=== PATIENT | female | born 1970 | race Hispanic/Latino ===

== ENCOUNTER 2018-10-13 15:14 | Outpatient (CLI) | payer BC | END 2018-10-13 15:15 | disposition home or self-care (01) | LOC: BICMAMMO 15:14 | PROVIDERS: ATTEND Family Medicine | DX: Z12.31 Encounter for screening mammogram for malignant neoplasm of breast (principal); R92.1 Mammographic calcification found on diagnostic imaging of breast; Z80.3 Family history of malignant neoplasm of breast | CPT/HCPCS: 77063; 77067 ==

== ENCOUNTER 2019-05-23 07:20 | Outpatient (CLI) | payer BC ==
--- NOTE | 2019-05-23 10:08 | ULT ---
HEPATIC ULTRASOUND WITH DOPPLER: Date: 05/23/19 HISTORY: Elevated LFTs. FINDINGS: The liver demonstrates increased echogenicity consistent with fatty infiltration. No focal mass or in trahepatic ductal dilatation is seen. The patient is post cholecystectomy. The common duct measures 4 mm in diameter. The tail of the pancreas is not well visualized. The remainder of the pancreas is ot herwise normal. No free fluid is seen in the right upper quadrant. There is normal flow and spectral waveforms in the hepatic, portal, and splenic vasculature. The sple en is normal, measuring 9.7 cm in length. IMPRESSION: 1. Fatty liver. 2. Status post cholecystectomy. POS: OFF
== END 2019-05-23 07:21 | disposition home or self-care (01) ==
LOC: SCSULT 07:20
PROVIDERS: ATTEND Internal Medicine Gastroenterology
DX: R94.5 Abnormal results of liver function studies (principal); K76.0 Fatty (change of) liver, not elsewhere classified; Z90.49 Acquired absence of other specified parts of digestive tract
CPT/HCPCS: 76705

== ENCOUNTER 2019-12-16 15:22 | Outpatient (CLI) | payer BC ==
--- NOTE | 2019-12-22 13:27 | MMO ---
Bilateral MAMMO Bilat Screen [facility]. CLINICAL HISTORY: Patient is 49 years old and is seen for screening. The patient has no family history of breast cancer. The patient has no personal history of cancer. The patient has a history of bilateral Breast reduction in 2000. VIEWS: The views performed were: bilateral craniocaudal with tomosynthesis and bilateral mediolateral oblique with tomosynthesis. FILMS COMPARED: The present examination has been compared to prior imaging studies performed at [facility] on 05/19/2011, 09/21/2013, 12/04/2014 and 10/13/2018. This study has been interpreted with the assistance of computer-aided detection. MAMMOGRAM FINDINGS: There are scattered fibroglandular densities. There are stable benign appearing calcifications seen in both breasts. There are no suspicious masses, suspicious calcifications, or new areas of architectural distortion. IMPRESSION: THERE IS NO MAMMOGRAPHIC EVIDENCE OF MALIGNANCY. A ROUTINE FOLLOW-UP MAMMOGRAM IN 1 YEAR IS RECOMMENDED. THE RESULTS OF THIS EXAM WERE SENT TO THE PATIENT. ACR BI-RADS Category 2 - Benign finding MAMMOGRAPHY NOTE: 1. A negative mammogram report should not delay a biopsy if a dominant of clinically suspicious mass is present. 2. Approximately 10% to 15% of breast cancers are not detected by mammography. 3. Adenosis and dense breasts may obscure an underlying neoplasm. Reported by: KEDAR FRANKLIN MD Electonically Signed: [id number]
== END 2019-12-16 15:23 | disposition home or self-care (01) ==
LOC: BICMAMMO 15:22
PROVIDERS: ATTEND Family Medicine
DX: Z12.31 Encounter for screening mammogram for malignant neoplasm of breast (principal); Z98.82 Breast implant status
CPT/HCPCS: 77063; 77067

== ENCOUNTER 2020-01-04 10:39 | Observation (INO) | payer BC ==
[2020-01-04 11:08] LABS: #Basophils 0.1 thou/uL (0.0-0.2); #Eosinphils 0.1 thou/uL (0.0-0.7); #Lymphocytes 3.1 thou/uL (1.20-3.40); #Monocytes 0.4 thou/uL (0.11-0.59); #Neutrophils 7.1 thou/uL (1.40-6.50); %Basophils 1.2 % (0.0-1.0); %Lymphocytes 28.5 % (21.0-51.0); %Neutrophils 65.4 % (42.0-75.0); Hemoglobin 15.3 g/dL (12.0-16.0); Mean Corpuscular HGB CONC 33.6 g/dL (32.0-36.0); Mean Corpuscular Hemoglobin 28.4 pg (27.0-31.0); Mean Corpuscular Volume 84.5 fL (78.0-98.0); Mean Platelet Volume 7.4 fL (7.4-10.4); Platelet Count 224 thou/uL (130-400); White Blood Cell (WBC) Count 10.9 thou/uL (4.8-10.8)
--- NOTE | 2020-01-04 11:13 | RAD ---
2 VIEWS CHEST: Date: 01/04/2020 COMPARISON: None. HISTORY: Chest pain. FINDINGS: Two views of the chest show normal sized cardiomediastinal silhouette. There is no evidence of consol idation, mass, or pleural effusion. The bones are unremarkable. IMPRESSION: No evidence of acute cardiopulmonary disease. POS: TPC
[2020-01-04 11:32] LABS: ALT (SGPT) 51 U/L (8-55); AST (SGOT) 41 U/L (5-34); Albumin 4.5 g/dL (3.5-5.0); Alkaline Phosphatase 174 U/L (40-110); Anion Gap 14 mmol/L (10-20); BUN (Urea Nitrogen) 11 mg/dL (9.8-20.1); Bilirubin, Total 0.5 mg/dL (0.2-1.2); Calc. Creatinine Clearance 0 mL/min (70-130); Calcium 9.8 mg/dL (7.8-10.44); Carbon Dioxide 27 mmol/L (22-29); Chloride 101 mmol/L (98-107); Estimated GFR-MDRD 75; Glucose 306 mg/dL (70-105); Potassium 3.9 mmol/L (3.5-5.1); Protein, Total 7.5 g/dL (6.0-8.3); Sodium 138 mmol/L (136-145)
[2020-01-04] MEDS ORDERED: Iopamidol-370 76% 500 ML 1 ML ONE (13:54)
[2020-01-04] MEDS ORDERED: Aspirin Chewable 81 MG TAB ONE (13:56)
[2020-01-04] MEDS ORDERED: Nitroglycerin 0.4 MG TAB 1 EACH ONE (13:57)
--- NOTE | 2020-01-04 14:53 | CT ---
CTA Angio Chest W WO Con History: Chest pain Comparison: Chest radiograph same day Findings: CT angiogram chest performed after the intravenous administration of contrast. 3-D renderin g was provided. No proximal segmental pulmonary arterial filling defect. Admixing artifact within the pulmonary trunk. No pericardial effusion. Heart size is not significantly enlarged. Upper abdomen is unremarkable. No mediastinal adenopathy. No acute osseous abnormality. Thoracic spine is without compression deform ity. The lungs are clear. No pneumothorax. No effusion. No confluent airspace consolidation. No displaced rib fracture. Impression: 1. No pulmonary embolism. 2. No acute inflammatory process within the chest. No evidence for pneumonia.
[2020-01-04 17:20] LABS: Troponin I Less than 0.010 ng/mL (< 0.028)
[2020-01-04] MEDS ORDERED: Nitroglycerin 0.4 MG TAB (25 Tab Bottle) PO PRN (17:49)
[2020-01-04] MEDS ORDERED: HumaLOG 300 UNITS/3 ML VIAL SC PRN ×2 (17:57)
[2020-01-04] MEDS ORDERED: Dextrose 50% Abboject 50 ML SYRINGE SLOW IVP PRN (17:57)
[2020-01-04] MEDS ORDERED: Dextrose 5% in Water 1,000 ML IV PRN (17:57)
[2020-01-04] MEDS ORDERED: Acetaminophen 325 MG TAB PO PRN (18:01)
[2020-01-04] MEDS ORDERED: Acetaminophen 650 MG Suppository PR PRN (18:01)
[2020-01-04] MEDS ORDERED: Amitriptyline HCl 25 MG TAB PO SCH (22:45)
[2020-01-04] MEDS ORDERED: busPIRone HCl 10 MG TAB PO SCH (23:00)
[2020-01-04] MEDS ORDERED: Carvedilol 3.125 MG TAB PO SCH (23:00)
[2020-01-04] MEDS ORDERED: Gabapentin 300 MG CAP PO SCH (23:00)
[2020-01-04] MEDS ORDERED: Dextrose 5 %-0.45 % NaCl 1,000 ML IV SCH (23:55)
[2020-01-05 05:31] LABS: #Basophils 0.1 thou/uL (0.0-0.2); #Eosinphils 0.1 thou/uL (0.0-0.7); #Lymphocytes 3.5 thou/uL (1.20-3.40); #Monocytes 0.3 thou/uL (0.11-0.59); #Neutrophils 5.5 thou/uL (1.40-6.50); %Basophils 0.7 % (0.0-1.0); %Eosinophils 1.2 % (0.0-10.0); %Lymphocytes 36.4 % (21.0-51.0); %Monocytes 3.6 % (0.0-10.0); %Neutrophils 58.1 % (42.0-75.0); Mean Corpuscular HGB CONC 33.5 g/dL (32.0-36.0); Mean Corpuscular Hemoglobin 28.2 pg (27.0-31.0); Mean Corpuscular Volume 84.2 fL (78.0-98.0); Mean Platelet Volume 7.6 fL (7.4-10.4); Platelet Count 187 thou/uL (130-400); RBC Distribution Width 14.9 % (11.5-14.5); Red Blood Cell (RBC) Count 4.95 mill/uL (4.20-5.40); White Blood Cell (WBC) Count 9.5 thou/uL (4.8-10.8)
[2020-01-05 05:51] LABS: Anion Gap 16 mmol/L (10-20); BUN (Urea Nitrogen) 11 mg/dL (9.8-20.1); Calc. Creatinine Clearance 0 mL/min (70-130); Calcium 9.5 mg/dL (7.8-10.44); Carbon Dioxide 25 mmol/L (22-29); Chloride 101 mmol/L (98-107); Cholesterol 155 mg/dl (< 200 Desired); Estimated GFR-MDRD 90; Glucose 181 mg/dL (70-105); HDL Cholesterol 51 mg/dL (>60 Neg Risk); LDL Cholesterol, Calculated 78 mg/dL; Potassium 4.1 mmol/L (3.5-5.1); Sodium 138 mmol/L (136-145); Triglycerides 132 mg/dL (Less than 150)
[2020-01-05] MEDS ORDERED: Carvedilol 3.125 MG TAB PO SCH (08:00)
[2020-01-05] MEDS ORDERED: Aspirin 81 mg Enteric Coated Tablet PO SCH (09:00)
[2020-01-05] MEDS ORDERED: ADENOSINE 60 MG/20 ML VIAL ONE (09:43)
[2020-01-05] MEDS ORDERED: ALPRAZolam 0.25 MG TAB PO PRN (09:55)
[2020-01-05] MEDS ORDERED: ALPRAZolam 0.25 MG TAB ONE (10:00)
--- NOTE | 2020-01-05 11:08 | HP ---
TIME OF ASSESSMENT: 1700 hours. PRIMARY CARE PHYSICIAN: Dr. Robles. CHIEF COMPLAINT: Chest pain. HISTORY OF PRESENT ILLNESS: Ms. Daxa Carlson is a 49-year-old woman, who presents to the emergency department after experiencing sudden onset chest pressure while at work this morning around 7:00 a.m. The patient states she had come down from the top floor to the bottom floor via elevator. Upon getting out of the elevator, she felt a pressure in the center of her chest, which she rates it 3/10 to 4/10 in severity. She states she felt immediately nauseated and like her heart was racing. She states she was clammy and told by her co-worker that she appeared pale. The patient states she vomited once. She states all the symptoms came together at once. Denies having any radiating discomfort. Reports feeling like it was difficult to take deep breaths due to the pressure. Her pain has fully subsided. The patient reports having these similar symptoms, but never together at once. She reports having issues with tachycardia. Denies being diagnosed with atrial fibrillation or atrial flutter, but states her heart rate has always been fast and more recently has been as high as 156 when she went for a Rheumatology followup. It did improve to 140 after 5 minutes and she was released and advised to follow up with her ophthalmic photographer. The patient states she is on Coreg 3.125 mg p.o. twice daily and the reason why it cannot be increased is due to her chronically low blood pressure that is usually in the 90s systolic. 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 She denies having any fevers or chills. Reports having a chronic cough productive for white sputum, but denies any hemoptysis. Denies any issues with dyspnea on exertion. Reports having issues with chronic constipation. Denies any blood in her stools. Denies any urinary symptoms. All other review of systems are negative. ALLERGIES: 1. HYDROMORPHONE. 2. REGLAN. 3. INVOKANA. 4. ATORVASTATIN. CURRENT MEDICATIONS: 1. Jardiance. 2. Ozempic. 3. Amitriptyline. 4. Aspirin. 5. Carvedilol. 6. Gabapentin. 7. Metformin. 8. Omeprazole. 9. Buspirone. 10. Trulance. 11. Venlafaxine. PAST MEDICAL HISTORY: 1. Sinus tachycardia. 2. Diabetes mellitus. 3. Rheumatoid arthritis. 4. Anxiety. 5. Hyperlipidemia. PAST SURGICAL HISTORY: 1. Breast reduction surgery. 2. Sinus surgery. 3. Multiple oral surgeries. 4. Dilatation and curettage x2. 5. Cholecystectomy. 6. Hysterectomy. SOCIAL HISTORY: The patient lives with family at home and is fully independent at baseline. Denies any history of tobacco use, alcohol consumption, or illicit drug use. PHYSICAL EXAMINATION: GENERAL: The patient appears well developed, well nourished, is in no acute distress. VITAL SIGNS: Temperature 97.8, pulse 104, blood pressure 122/77, respirations 17, O2 saturation 98% on room air. HEENT: Normocephalic, atraumatic. Pupils are equal, round, reactive to light. Sclerae without icterus. Oropharynx is clear. NECK: Supple. LUNGS: Clear to auscultation bilaterally without wheezes, rales, or rhonchi. CARDIAC: Regular rate and rhythm. No reproducible chest wall tenderness on palpation. Normal chest wall expansion. No tachypnea. ABDOMEN: Soft, nontender, nondistended. Normoactive bowel sounds present. No guarding or rigidity. No renal angle tenderness. EXTREMITIES: No lower leg swelling or edema. NEUROLOGIC: Alert and oriented x3. SKIN: Warm and dry. LABORATORY DATA: White blood count 10.9, hemoglobin 15.3, hematocrit 45.6, platelets 224,000, neutrophils 65.4%. Sodium 138, potassium 3.9, BUN 11, creatinine 0.81, GFR 75, glucose 206, calcium 9.8, total bilirubin 0.5, AST 41, ALT 51, alkaline phosphatase 174. Troponin negative x2. Albumin 4.5. IMAGING DATA: 1. Chest x-ray showed no acute intrathoracic abnormalities. Normal size cardiomediastinal silhouette noted. 2. CT angiogram of the chest showed no PE. No acute inflammatory process within the chest. No evidence of pneumonia. IMPRESSION AND PLAN: Ms. Carlson is a pleasant 49-year-old woman, who presented to the emergency department with complaints of chest pressure associated with diaphoresis and nausea with one episode of vomiting. She had an EKG done showing sinus tachycardia with a heart rate of 108. There was 0.[address]-elevation and T-waves are normal. The patient was given 243 mg of aspirin, also given sublingual nitroglycerin. She underwent investigations as above and is being admitted for the following; 1. Acute coronary syndrome rule out. The patient will remain on continuous cardiac monitoring. We will plan to keep her n.p.o. after midnight. She will receive gentle hydration, given recent contrast given for CT angiogram and plans for stress test in the morning. The patient has requested to be evaluated by Dr. Smyth, who is her ophthalmic photographer, whom she follows with for management of her sinus tachycardia. We will check her magnesium, TSH, and fasting lipid panel. The patient states she is not sure she has ever had an echocardiogram, therefore this has been ordered as well of chronic cough productive for white sputum and occasional shortness of breath. 2. Diabetes mellitus. Monitor blood glucose and initiate insulin sliding scale. We will hold her medications for now being as she will be n.p.o. after midnight, will be undergoing a stress test. 3. Gastroesophageal reflux disease. The patient will be restarted on omeprazole. 4. Deep venous thrombosis prophylaxis. The patient is ambulatory. 5. Rheumatoid arthritis. Resume home medications once verified. 6. Code status is full. Surrogate decision maker is her , Maged Carlson. Case will be discussed with attending for further recommendations. Job ID: [id number]
--- NOTE | 2020-01-05 12:11 | NM ---
EXAM: NM Cardiac Stress W EF WF PROVIDED CLINICAL HISTORY: Chest pain COMPARISON: 04/27/2010 FINDINGS: Mild diminished uptake of radiotracer is seen within the distal anteroseptal left ventricular wall an d apex without findings to suggest significant reversibility. Quantitative analysis does not demonstrate significant reversibility. Gated images show normal ventricular wall motion and wall thic kening. Calculated left ventricular ejection fraction is 76%. Left ventricular ejection fraction on prior study in 2009 was 66%. There is elevation of the transient ischemic dilatation ratio 1.3. Nancy l is 1.22 or less. IMPRESSION: 1. Probably normal myocardial perfusion study with diminished uptake of radiotracer in the distal ant eroseptal wall and at the apex without significant reversibility appreciated. In addition quantitative analysis shows no significant reversible defect. 2. Normal LVEF of 76%. 3. Elevation of the transient ischemic dilatation ratio.
--- NOTE | 2020-01-05 16:38 | PDOC.BPN ---
- Brief Progress Note DISCHARGE SUMMARY LIVE [facility] Discharge Patient Name: GERALD BERRIOS Date of : 1970 Patient Status: Observation Attending Provider: Akash Agrawal Date: 01/05/20 16:35 Initialization Date: 01/05/20 16:35 Discharge - Disposition Disposition: HOME - Ambulatory Orders Prescriptions: Carvedilol [Coreg] 3.125 mg PO BID-WM 30 Days #60 tab - Patient Instructions Pre-Printed Education: Nonspecific Chest Pain, [id number] Additional Instructions: See patient discharge instruction sheet for detailed teaching. Patient verbalizes understanding of medications and is able to verbalize follow-up care. See Discharge Plan for additional discharge information. Patient secured in private vehicle prior to departure. FOCUS: Transition from Acute Care after Discharge GOAL: Successful transition to care in the community YOUR TASKS: (1) review all information outlined in your discharge packet (2) follow any instructions outlined in your discharge packet (3) contact your primary care provider if you have questions or need additional assistance - Referrals and PCP Follow-Up Referrals and PCP Follow-Up: Pete Robles MD [Primary Care Provider] - 7 Days () Leanne Smyth MD [Active] - (Please call to schedule a follow up appointment. ) - Nourishment Instructions Nourishment:: Regular Diet - Therapy Instructions Therapies:: Not Applicable - Equipment/Supply Instructions Equipment/Supplies:: Not Applicable - IV Therapy Instructions IV Therapy:: Not Applicable Course - Course Orders, Labs, Meds: 49 y/o lady presenting with chest pain, initial troponin and EKG unremarkable for ishemia, obsevation with stress test due to risk factors, test unremarkabl, likely chest pain related to anxiety or panic attack. Patient advised to followup with cardiology, given risk factor of diabetes and RA and continue medical mangement. Plan was discussed with cardiology team and they will follow up in the outpatient for lifestyle and medical management. At the time of discharge, patient no longer had symptoms of chest pain.
== END 2020-01-04 16:59 | disposition home or self-care (01) ==
LOC: ERS 10:39 → ERHOLD 16:38
PROVIDERS: ADMIT Internal Medicine; ATTEND Internal Medicine
DX: R07.89 Other chest pain (principal); E11.9 Type 2 diabetes mellitus without complications; M06.9 Rheumatoid arthritis, unspecified; F41.9 Anxiety disorder, unspecified; E78.5 Hyperlipidemia, unspecified; K21.9 Gastro-esophageal reflux disease without esophagitis; H66.92 Otitis media, unspecified, left ear; G51.0 Bell's palsy; Z79.82 Long term (current) use of aspirin; Z79.84 Long term (current) use of oral hypoglycemic drugs; Z79.899 Other long term (current) drug therapy; Z88.5 Allergy status to narcotic agent; Z88.8 Allergy status to other drugs, medicaments and biological substances
CPT/HCPCS: 36415; 36416; 71046; 71275; 78452; 80048; 80053; 80061; 83605; 83735; 84443; 84484; 85025; 93005; 93017; A9500; J0153; Q9967

== ENCOUNTER 2024-08-23 14:14 | Outpatient (CLI) | payer BC | END 2024-08-23 14:15 | disposition home or self-care (01) | LOC: ULT 14:14 | PROVIDERS: ATTEND Family Medicine | DX: N30.90 Cystitis, unspecified without hematuria (principal) | CPT/HCPCS: 76770 ==